=== PATIENT | male | born 1990 | race Caucasian/White ===

== ENCOUNTER 2018-04-17 23:52 | Emergency (ER) | payer OTHER ==
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
== END 2018-04-18 01:01 | disposition home or self-care (01) ==
LOC: MW.ED 23:52
DX: S49.92XA Unspecified injury of left shoulder and upper arm, initial encounter (principal); X58.XXXA Exposure to other specified factors, initial encounter
CPT/HCPCS: 73030-26-LT; 73030-LT; 99283